=== PATIENT | female | born 1965 | race African-American/Black ===

== ENCOUNTER 2022-03-03 20:49 | Emergency (ER) | payer MEDICAID ==
[~2022-03-03] VITALS: Ht 170.2 cm; Wt 66.7 kg
[~2022-03-03 20:49] MED LIST: ACID REFLUX MEDS PO
--- NOTE | 2022-03-03 20:55 | NUR ---
Pt placed in to room ED2A by superintendent transmission. Pt here after she received a scratch from a wire basket at [employer] 4 days ago. Came in because she was due for a tetnus shot. Pt otherwise healthy. no major health issues. here solely for the Tetnus shot. VSS, PE WNL, NAD. No s/sx of distress present.
--- NOTE | 2022-03-03 21:10 | NUR ---
EDMD at bedside examining pt.
[2022-03-03] MEDS ORDERED: MUPI22OI2 TP (21:13)
[2022-03-03] MEDS ORDERED: TDAP DIPH,PERTUSS,TET VAC/PF 0.5 ML DISP.SYRIN IM ONE ×2 (21:15→21:28)
--- NOTE | 2022-03-03 21:15 | NUR ---
EDMD completed DC paperwork and ordered one tetnus shot then DC home.
--- NOTE | 2022-03-03 21:18 | NUR ---
Pt given tetnus shot and observed for reaction for approx 20 min, then pt given DC instructions and pt confirmed understanding of aftercare. No s/sxof reaction or distress present. Pt DCed, Date was waiting for her outside. VSS, NAD. No s/sx of distress noted.
[2022-03-04 02:00] VITALS: BP 125/85
== END 2022-03-03 21:35 | disposition home or self-care (01) ==
LOC: ER 20:54
DX: S80.211A Abrasion, right knee, initial encounter (principal); W45.8XXA Other foreign body or object entering through skin, initial encounter; Y92.512 Supermarket, store or market as the place of occurrence of the external cause; R03.0 Elevated blood-pressure reading, without diagnosis of hypertension
CPT/HCPCS: 90715; A4663